=== PATIENT | male | born 1965 | race Caucasian/White ===

== ENCOUNTER → 2021-05-07 | Outpatient (REF) ==
[~2021-05-07] MED LIST: ABIL20TA2; CELE20TA; No Historical Meds; TRAZ50TA
--- NOTE | 2021-05-07 10:54 | REPPI ---
INDICATION: BACK PAIN. COMPARISON: None. TECHNIQUE: Three AP and lateral views lumbosacral spine. FINDINGS: There is no compression fracture or malalignment. There is normal lumbar lordosis. There is mild diffuse spurring, with an anterior bridging osteophyte at L3-4. There is mild disc space narrowing and subchondral sclerosis at all levels. There is sclerosis and spurring at the facet joints of L4-5 and L5-S1. The posterior elements are intact. IMPRESSION: Degenerative changes as above with no compression fracture or malalignment. <Electronically signed by Joseluis Cordova > 05/07/21 [id number]
== END ==
LOC: M PLAIMG 10:12
PROVIDERS: ATTEND Internal Medicine
DX: M54.5 Low back pain (principal)